=== PATIENT | female | born 1975 | race Two or more races ===

== ENCOUNTER 2024-11-24 12:15 | Inpatient (IN) | payer OTHER ==
[~2024-11-24] VITALS: Ht 160 cm; Wt 62.6 kg
[2024-11-24] MEDS ORDERED: LEVO-T125 MCG PO (13:32)
[2024-11-24 15:13] LABS: ALT/SGPT 13.0 U/L (12-78); AST/SGOT 17.0 U/L (15-37); BILIRUBIN TOTAL 0.56 mg/dL (0.3-1.2); BUN CREA RATIO 19.0 (7.0-25.0); CREATININE SERUM 0.78 mg/dL (0.55-1.02); GFR 78.83; GLOBULINA 3.6 G/DL (2.4-3.5); GLUCOSE FASTING 94.0 mg/dL (65-100); OSMOLALITY SERUM 280.0 MOSM/KG (275-295)
[2024-11-24 21:27] LABS: RH POSITIVE
[2024-12-01] MEDS ORDERED: CEFAZOLIN SODIUM 1,000 MG VIAL IV ONE (14:30)
[2024-12-01] MEDS ORDERED: CHLORHEXIDINE GLUCONATE 120 ML BOTTLE TOP ONE (14:30)
[2024-12-01] MEDS ORDERED: SUGAMMADEX SODIUM 200 MG/2 ML VIAL IV ONE (16:28)
[2024-12-01] MEDS ORDERED: MORPHINE SULFATE 4 MG/ML VIAL IV ONE ×2 (17:10→17:15)
[2024-12-01] MEDS ORDERED: KETOROLAC TROMETHAMINE 30 MG VIAL ONE (17:31)
[2024-12-01] MEDS ORDERED: RINGERS SOLUTION,LACTATED 1,000 ML IV SCH (17:45)
[2024-12-01] MEDS ORDERED: KETOROLAC TROMETHAMINE 30 MG VIAL IV SCH (18:00)
[2024-12-01] MEDS ORDERED: ONDANSETRON HCL 2 MG/ML VIAL IV SCH (18:00)
[2024-12-01] MEDS ORDERED: ACETAMINOPHEN 325 MG TABLET PO SCH (18:00)
[2024-12-01 19:01] LABS: BASO % 0.2 % (0.1-1.2); EOS # 0.02 (0.04-0.54); EOS % 0.2 % (0.7-7.0); LYMPH # 1.09 (1.18-3.74); LYMPH % 8.4 % (19.3-53.1); MEAN PLATELET VOLUME 8.80 fl (9.4-12.4); MONO # 0.48 (0.24-0.82); MONO % 3.7 % (4.7-12.5); NEUT # 11.29 (1.56-6.13); NEUT % 87.2 % (34.0-71.1); RED CELL DISTRIBUTION WIDTH 12.7 % (11.6-14.4)
[2024-12-01] MEDS ORDERED: GABAPENTIN 300 MG CAPSULE PO ONE (19:48)
[2024-12-01] MEDS ORDERED: GABAPENTIN 100 MG CAPSULE PO SCH (21:00)
[2024-12-01 21:21] VITALS: BP 110/69
[2024-12-01 21:21] LABS: BASO % 0.1 % (0.1-1.2); EOS # 0.00 (0.04-0.54); EOS % 0.0 % (0.7-7.0); LYMPH # 1.02 (1.18-3.74); LYMPH % 7.4 % (19.3-53.1); MEAN PLATELET VOLUME 8.90 fl (9.4-12.4); MONO # 0.58 (0.24-0.82); MONO % 4.2 % (4.7-12.5); NEUT # 12.05 (1.56-6.13); NEUT % 87.9 % (34.0-71.1); RED CELL DISTRIBUTION WIDTH 12.7 % (11.6-14.4)
[2024-12-01 21:58] LABS: BUN CREA RATIO 10.0 (7.0-25.0); CREATININE SERUM 0.68 mg/dL (0.55-1.02); GFR 92.35; GLUCOSE FASTING 88.0 mg/dL (65-100); OSMOLALITY SERUM 279.0 MOSM/KG (275-295)
[2024-12-02 01:18] VITALS: BP 106/69
[2024-12-02 04:00] VITALS: BP 104/60
[2024-12-02 06:19] LABS: BASO % 0.2 % (0.1-1.2); EOS # 0.00 (0.04-0.54); EOS % 0.0 % (0.7-7.0); LYMPH # 1.23 (1.18-3.74); LYMPH % 9.4 % (19.3-53.1); MEAN PLATELET VOLUME 9.60 fl (9.4-12.4); MONO # 0.60 (0.24-0.82); MONO % 4.6 % (4.7-12.5); NEUT # 11.20 (1.56-6.13); NEUT % 85.4 % (34.0-71.1); RED CELL DISTRIBUTION WIDTH 12.6 % (11.6-14.4)
[2024-12-02 06:46] LABS: BUN CREA RATIO 9.0 (7.0-25.0); CREATININE SERUM 0.64 mg/dL (0.55-1.02); GFR 99.04; GLUCOSE FASTING 122.0 mg/dL (65-100); OSMOLALITY SERUM 280.0 MOSM/KG (275-295)
[2024-12-02] MEDS ORDERED: ONDANSETRON HCL 2 MG/ML VIAL IV PRN (07:21)
[2024-12-02] MEDS ORDERED: LEVOTHYROXINE SODIUM 125 MCG TABLET PO STA (07:48)
[2024-12-02] MEDS ORDERED: LEVALBUTEROL HCL 0.63 MG/3 ML SOLUTION IH SCH (09:00)
[2024-12-02 09:10] VITALS: BP 106/68
[2024-12-02 16:21] VITALS: BP 109/69
[2024-12-03] MEDS ORDERED: LEVOTHYROXINE SODIUM 125 MCG TABLET PO SCH (06:00)
== END 2024-12-02 18:53 | disposition home or self-care (01) | DRG 743 ==
LOC: SURH 12-01 08:15 → O/R 12-01 10:00 → OB/GYN 12-01 10:00 → SURH 12-01 12:15 → OB/GYN 12-01 17:55
PROVIDERS: Student in an Organized Health Care Education/Training Program; ADMIT Obstetrics & Gynecology Gynecology; ATTEND Obstetrics & Gynecology Gynecology
PROC: 0UT94ZZ Resection of Uterus, Percutaneous Endoscopic Approach (ICD-10-PCS; principal; 2024-12-01)
PROC: 0UT74ZZ Resection of Bilateral Fallopian Tubes, Percutaneous Endoscopic Approach (ICD-10-PCS; 2024-12-01)
PROC: 0T788DZ Dilation of Bilateral Ureters with Intraluminal Device, Via Natural or Artificial Opening Endoscopic (ICD-10-PCS; 2024-12-01)
PROC: 3E0F7GC Introduction of Other Therapeutic Substance into Respiratory Tract, Via Natural or Artificial Opening (ICD-10-PCS; 2024-12-02)
DX: D25.1 Intramural leiomyoma of uterus (principal); N80.03 Adenomyosis of the uterus; D25.0 Submucous leiomyoma of uterus; J45.20 Mild intermittent asthma, uncomplicated

== ENCOUNTER 2024-12-04 22:59 | Emergency (ER) | payer OTHER ==
[~2024-12-04] VITALS: Ht 160 cm; Wt 62.6 kg
[~2024-12-04 22:59] MED LIST: LEVO-T125 MCG PO
[2024-12-04] MEDS ORDERED: 0.9 % SODIUM CHLORIDE 1,000 ML IV ONE (23:15)
[2024-12-04] MEDS ORDERED: CELEBREX50 MG PO (23:24)
[2024-12-04] MEDS ORDERED: TYLENOL325 MG (23:24)
[2024-12-04] MEDS ORDERED: GRALISE600 MG (23:24)
[2024-12-04] MEDS ORDERED: MORPHINE SULFATE 4 MG/ML CARTRIDGE IV PRN (23:45)
[2024-12-04] MEDS ORDERED: PIPERACILLIN/TAZOBACTAM SODIUM 3.375 GM VIAL IV ONE ×2 (23:45→23:50)
[2024-12-04] MEDS ORDERED: FAMOtidine 10 MG/ML (4ML VIAL) IV ONE (23:45)
[2024-12-04] MEDS ORDERED: ACETAMINOPHEN 325 MG TABLET PO PRN (23:45)
[2024-12-04 23:47] LABS: BASO % 0.1 % (0.1-1.2); EOS # 0.13 (0.04-0.54); EOS % 1.6 % (0.7-7.0); LYMPH # 0.85 (1.18-3.74); LYMPH % 10.8 % (19.3-53.1); MEAN PLATELET VOLUME 9.10 fl (9.4-12.4); MONO # 0.37 (0.24-0.82); MONO % 4.7 % (4.7-12.5); NEUT # 6.50 (1.56-6.13); NEUT % 82.5 % (34.0-71.1); RED CELL DISTRIBUTION WIDTH 12.8 % (11.6-14.4)
[2024-12-04] MEDS ORDERED: FAMOTIDINE/PF 20 MG/2 ML VIAL ONE (23:51)
[2024-12-05 00:13] LABS: INR 1.06
[2024-12-05 00:17] LABS: ALT/SGPT 18.0 U/L (12-78); AST/SGOT 41.0 U/L (15-37); BILIRUBIN TOTAL 0.42 mg/dL (0.3-1.2); BUN CREA RATIO 10.0 (7.0-25.0); CREATININE SERUM 0.69 mg/dL (0.55-1.02); GFR 90.81; GLOBULINA 3.6 G/DL (2.4-3.5); GLUCOSE FASTING 121.0 mg/dL (65-100); OSMOLALITY SERUM 280.0 MOSM/KG (275-295)
[2024-12-05 00:40] LABS: URINE APPEARANCE Clear; URINE BILIRRUBIN Negative (NEGATIVE); URINE BLOOD Small; URINE COLOR Yellow; URINE GLUCOSE Negative (NEGATIVE); URINE KETONE Trace (NEGATIVE); URINE LEUKOCYTE Trace; URINE NITRATE Negative; URINE PROTEIN Negative (NEGATIVE); URINE UROBILINOGEN 1.0 E.U./dl
[2024-12-05 00:43] LABS: URINE BACTERIA 377.8 uL (0.0-1933); URINE EPITHELIAL CELLS 30.7 uL (0.0-38.8); URINE WBC 34.6 uL (0.0-23.2)
[2024-12-05 00:45] LABS: URINE CAST 0.14 uL (0.0-1.40); URINE RBC 0.7 uL (0.0-20.8)
== END 2024-12-05 03:25 | disposition home or self-care (01) ==
LOC: ER 22:59
PROVIDERS: General Practice
DX: G89.18 Other acute postprocedural pain (principal); R14.0 Abdominal distension (gaseous); Z90.710 Acquired absence of both cervix and uterus